=== PATIENT | female | born 1990 | race Caucasian/White ===

== ENCOUNTER 2017-05-01 19:17 | Emergency (ER) | payer SELFPAY ==
[2017-05-01 19:23] VITALS: BP 125/78; PULSE 96; RESP 16; TEMP 98.1; O2SAT 97
[2017-05-01] MEDS ORDERED: HYDR-3516 PO (20:11)
[2017-05-01] MEDS ORDERED: CEPH-460 PO (20:11)
[2017-05-01] MEDS ORDERED: BACT800T5 PO (20:11)
--- NOTE | 2017-05-01 20:11 | PD ---
HPI Chief Complaint: Skin Problem Time Seen by Provider: 19:56 Travel History International Travel<30 days: No Contact w/Intl Traveler<30days: No Traveled to known affect area: No History of Present Illness HPI 26-year-old female here for evaluation of right anterior thigh infection. The patient first noticed a small pimple-like area 2 days ago. She squeezed the area and has poked at it. She has also applied warm compresses. The area of redness and induration seems to be increasing. Pain is also moderate to severe and worse with palpation. She started an old prescription of Bactrim yesterday taking 2 doses yesterday and 1 dose today. She denies fevers or chills. No history of IVDU. [facility] Past Medical History Medical History: Denies Significant Hx Tetanus Vaccination: Unknown Influenza Vaccination: No ?: Not LMP: 04/23/17 Past Surgical History Surgical History: No Previous Surgery Social History Alcohol Use: Yes (1-2 TIMES PER WEEK) Tobacco Use: Yes (E-CIGARETTES) Substance Use: No Allergies-Medications (Allergen,Severity, Reaction): Coded Allergies: No Known Drug Allergies (Verified Allergy, Unknown, 05/01/17) Reported Meds & Prescriptions Reported Meds & Active Scripts Active No Active Prescriptions or Reported Medications Review of Systems Except as stated in HPI: all other systems reviewed are Neg Physical Exam Narrative GENERAL: Well-developed, well-nourished, comfortable, no apparent distress. SKIN: Right anterior thigh with moderate size area of warmth and erythema with central pustule with surrounding induration. No crepitus. No red streaks. This area was evaluated using a linear ultrasound probe in shows cobblestoning which is consistent with cellulitis, no drainable fluid collection. HEAD: Atraumatic. Normocephalic. EYES: Pupils equal and round. No scleral icterus. No injection or drainage. ENT: Mucous membranes pink and moist. NECK: Trachea midline. No JVD. CARDIOVASCULAR: Regular rate and rhythm. No murmur appreciated. RESPIRATORY: No accessory muscle use. Clear to auscultation. Breath sounds equal bilaterally. MUSCULOSKELETAL: No obvious deformities. No clubbing. No cyanosis. No edema. NEUROLOGICAL: Awake and alert. No obvious cranial nerve deficits. Motor grossly within normal limits. Normal speech. PSYCHIATRIC: Appropriate mood and affect; insight and judgment normal. Data Data Last Documented VS Vital Signs Date Time Temp Pulse Resp B/P (MAP) Pulse Ox O2 Delivery O2 Flow Rate FiO2 05/01/17 19:23 98.1 96 16 125/78 (94) 97 Orders Orders Sulfamet-Trimeth Ds 800-160 Mg (Bactrim (05/01/17 20:15) Cephalexin (Keflex) (05/01/17 20:15) Acetamin-Hydrocod 325-5 Mg (Lucien 5-325 (05/01/17 20:15) MDM Medical Decision Making Medical Screen Exam Complete: Yes Emergency Medical Condition: Yes Differential Diagnosis Cellulitis, abscess Narrative Course Vital signs reviewed. The patient has an area of cellulitis to her right anterior leg. Pain is a started on Bactrim and Keflex and have her return to the emergency department in 48 hours for a wound check. She was advised on when to return to the emergency Department sooner. She verbalizes understanding and agreement with plan. Procedures Procedure Narrative Bedside skin ultrasound of right anterior thigh: Using the linear ultrasound, the area of concern to the right anterior leg was evaluated and shows cobblestoning which is consistent with cellulitis. There are no drainable fluid collections. Diagnosis Primary Impression: Cellulitis of right thigh Referrals: Primary Care Physician 3 days Additional Instructions: Take antibiotics as prescribed. Follow-up with a primary care physician this week. Return to the emergency department in 48 hours for a wound check. Return to the emergency Department sooner for worsening symptoms or any other concerns as discussed. Scripts Hydrocodone-Acetaminophen (Hydrocodone-Acetaminophen) 5-325 mg Tab 1 TAB PO Q6H Y for PAIN, #12 TAB 0 Refills Prov: Kenan Melissa MD 05/01/17 Cephalexin (Keflex) 500 Mg Cap 500 MG PO Q8H for Infection for 10 Days, #30 CAP 0 Refills Prov: Kenan Melissa MD 05/01/17 Sulfamethoxazole-Trimethoprim (Bactrim DS) 800-160 Mg Tab 1 TAB PO BID for Infection, #20 TAB 0 Refills Prov: Kenan Melissa MD 05/01/17 Disposition: 01 DISCHARGE HOME Condition: Stable Kenan Melissa MD May 01, 2017 20:11
[2017-05-01] MEDS ORDERED: CEPHALEXIN MONOHYDRATE 500 MG CAP PO ONE (20:15)
[2017-05-01] MEDS ORDERED: SULFAMETHOXAZOLE-TRIMETHOPRIM DS 800-160 MG TAB PO ONE (20:15)
[2017-05-01] MEDS ORDERED: ACETAMINOPHEN/HYDROcodone 325 MG/5 MG TAB PO ONE (20:15)
== END 2017-05-01 20:50 | disposition home or self-care (01) ==
LOC: PHEFT 19:17
DX: L03.115 Cellulitis of right lower limb (principal); Z72.0 Tobacco use
CPT/HCPCS: 99283